=== PATIENT | male | born 1985 | race Caucasian/White ===

== ENCOUNTER 2018-09-27 10:11 | Emergency (ER) | payer OTHER ==
[2018-09-27] MEDS ORDERED: KETOROLAC TROMETHAMINE 60 MG/2 ML SDV IM ONE (11:20)
--- NOTE | 2018-09-27 11:24 | ER Document Report ---
HPI - HPI Patient complains to provider of: back pain Time Seen by Provider: 09/27/18 11:08 Onset: Other - 3 days Onset/Duration: Persistent Quality of pain: Achy Severity: Severe Pain Level: 4 Context: Patient presents emergency department with complaints of right-sided upper back pain neck pain. Patient reports started 3 days ago. He denies trauma. Patient reports it hurts when he turns his neck. Denies fever vomiting diarrhea. 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 Denies past medical history of injury to the area. He reports he went to the urgent care before coming to the emergency department. He was offered a shot of Toradol but decided come to the emergency department for x-rays. 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 IN LAST 30 DAYS: No - HEENT HEENT: Atraumatic, Normocephalic Notes: Lipoma to right side of neck and under chin. No erythematous warmth or pustule - NECK Neck: Normal Inspection - No vertebral tenderness full range of motion no weakness, Supple. negative: Lymphadenopathy-Left, Lymphadenopathy-Right - RESPIRATORY Respiratory: Breath Sounds Normal, No Respiratory Distress, Chest Non-Tender. negative: Rhonchi, Wheezing - CARDIOVASCULAR Cardiovascular: Regular Rate - GI/ABDOMEN Gastrointestinal: Abdomen Soft, Abdomen Non-Tender - BACK Back: Normal Inspection - No obvious deformity good distal movement and sensation no vertebral tenderness no erythema no swelling no warmth no rash no vesicles - MUSCULOSKELETAL/EXTREMETIES Musculoskeletal/Extremeties: MAEW, FROM, Non-Tender - NEURO Level of Consciousness: Awake, Alert, Appropriate Motor/Sensory: No Motor Deficit - DERM Integumentary: Warm, Dry, No Rash Adult Front & Back Diagram: 1 - Reports pain with palpation Course - Re-evaluation Re-evalutation: 09/27/18 11:29 Patient was instructed on muscle relaxer Toradol for pain. Patient was also instructed on ice packs massage. His at the bedside reports she is a physical therapist and has been using massage. She reports he feels better during the massage but once she stops the pain returns. He was instructed on the importance of rest no strain. He was also instructed on the importance of follow-up with a primary care provider. Patient also has a lipoma, sites benign, to the right side of his neck and under his chin. He was instructed to follow-up with the plastic surgeon for removal. He verbalized understanding. - Vital Signs Vital signs: Temp Pulse Resp BP Pulse Ox 98 F 91 18 122/81 95 09/27/18 10:14 09/27/18 10:14 09/27/18 10:14 09/27/18 10:14 09/27/18 10:14 Discharge - Discharge Clinical Impression: Trapezius muscle strain Qualifiers: Encounter type: initial encounter Laterality: right Qualified Code(s): S46.811A - Strain of other muscles, fascia and tendons at shoulder and upper arm level, right arm, initial encounter Condition: Stable Disposition: HOME, SELF-CARE Instructions: Use of [facility] Ibuprofen ([facility]), Ice Massage ([facility]), Ice Packs ([facility]), Muscle Relaxers ([facility]), Muscle Strain ([facility]), Toradol Injection ([facility]) Additional Instructions: *You have been evaluated for muscle strain *Take medication as prescribed *Ice packs, massage *Follow up with a primary care provider within 5 days for a recheck *Return to ED for worsening condition, changes, needs Follow-up with Dr. Parish for evaluation of lipoma Monitor your blood pressure. Your blood pressure was elevated today. This may be because you were anxious, in pain or because you need medication. It is important to follow up with your primary care provider for full evaluation. Prescriptions: Cyclobenzaprine HCl [Flexeril 10 Mg Tablet] 10 mg PO TID #30 tablet Forms: Elevated Blood Pressure, Smoking Cessation Education, Return to Work Referrals: ALBA PARISH MD [ACTIVE STAFF] - Follow up as needed
[2018-09-27 12:31] VITALS: BP 123/71
== END 2018-09-27 12:30 | disposition home or self-care (01) ==
LOC: ER 10:11
DX: S29.012A Strain of muscle and tendon of back wall of thorax, initial encounter (principal); X58.XXXA Exposure to other specified factors, initial encounter; D17.79 Benign lipomatous neoplasm of other sites; M54.2 Cervicalgia; M54.89 Other dorsalgia; F17.210 Nicotine dependence, cigarettes, uncomplicated
CPT/HCPCS: 99283; 96372; J1885